=== PATIENT | female | born 1955 | race Caucasian/White ===

== ENCOUNTER 2019-07-02 12:55 | Day surgery (SDC) | payer BC ==
[~2019-07-02] VITALS: Ht 160 cm; Wt 160.0 kg
[~2019-07-02 12:55] MED LIST: ASPI-496 PO; ATOR40TA78 PO; CARV-39 PO; LIDOCAINE 1%, 20ML ONE; LIDOCAINE 1%-EPI 1:100K, 20ML ONE; MULT-658 PO; OMEP20TA62 PO; SODIUM BICARBONATE 4.2%, 5ML ONE; URIN1STR71 PO; [UNRECOGNIZED DRUG - OTHER] PO
[2019-07-02] MEDS ORDERED: EPINEPHRINE 1 MG/ML, 1ML ONE (13:46)
[2019-07-02] MEDS ORDERED: BUPIVACAINE/PF 0.5% ONE (13:46)
[2019-07-02] MEDS ORDERED: LACTATED RINGERS 1,000 ML IV SCH (14:15)
[2019-07-02 14:20] VITALS: BP 147/96
[2019-07-02 15:13] LABS: BASOPHILS # (AUTO) 0.03 x10^3/uL (0-0.1); BASOPHILS % (AUTO) 0 % (0-1); EOSINOPHILS # (AUTO) 0.25 x10^3/uL (0-0.4); EOSINOPHILS % (AUTO) 3 % (1-7); LYMPHOCYTES # (AUTO) 2.78 x10^3/uL (1-3.4); LYMPHOCYTES % (AUTO) 34 % (22-44); MD NO; MEAN CORPUSCULAR HEMOGLOBIN 30.4 pg (27.0-34.8); MEAN CORPUSCULAR HGB CONC 33.2 g/dL (32.4-35.8); MEAN CORPUSCULAR VOLUME 91.5 fL (80-100); MEAN PLATELET VOLUME 7.5 fL (7.4-10.4); MONOCYTES # (AUTO) 0.68 x10^3/uL (0.2-0.8); MONOCYTES % (AUTO) 8 % (2-9); NEUTROPHILS # (AUTO) 4.35 x10^3/uL (1.8-6.8); NEUTROPHILS % (AUTO) 54 % (42-75); PLATELET COUNT 219 x10^3/uL (130-400); RED CELL DISTRIBUTION WIDTH 13.1 % (9.6-15.2)
[2019-07-02] MEDS ORDERED: FENTANYL PF 100 MCG/2ML ONE ×2 (15:19→16:29)
[2019-07-02] MEDS ORDERED: PROPOFOL 50 ML ONE (15:19)
[2019-07-02] MEDS ORDERED: MIDAZOLAM 1 MG/ML, 2ML ONE (15:20)
[2019-07-02] MEDS ORDERED: DEXAMETHASONE 4 MG/ML, 1ML ONE (15:23)
[2019-07-02] MEDS ORDERED: CEFAZOLIN 1,000 MG ONE (15:23)
[2019-07-02] MEDS ORDERED: ONDANSETRON 2MG/ML, 2ML ONE (15:23)
[2019-07-02] MEDS ORDERED: METOPROLOL 1 MG/ML, 5ML IV PRN (16:00)
[2019-07-02] MEDS ORDERED: EPHEDRINE 50 MG/ML, 1ML IVPush PRN (16:00)
[2019-07-02] MEDS ORDERED: hydrALAzine 20 MG/ML, 1ML IV PRN (16:00)
[2019-07-02] MEDS ORDERED: MIDAZOLAM 1 MG/ML, 2ML IV PRN (16:00)
[2019-07-02] MEDS ORDERED: DIPHENHYDRAMINE 50 MG/ML, 1ML IVPush PRN (16:00)
[2019-07-02] MEDS ORDERED: MORPHINE SULFATE 4 MG/ML, 1ML IVPush PRN (16:00)
[2019-07-02] MEDS ORDERED: ONDANSETRON ODT 8 MG PO PRN (16:00)
[2019-07-02] MEDS ORDERED: PROMETHAZINE 25 MG/ML, 1ML IV PRN (16:00)
[2019-07-02] MEDS ORDERED: EPHEDRINE 50 MG/ML, 1ML IM PRN (16:00)
[2019-07-02] MEDS ORDERED: ONDANSETRON 2MG/ML, 2ML IV PRN (16:00)
[2019-07-02] MEDS ORDERED: MEPERIDINE/PF 25MG/ML,1ML IVPush PRN (16:00)
[2019-07-02] MEDS ORDERED: ACETAMINOPHEN 325 MG TABLET PO PRN (16:00)
[2019-07-02] MEDS ORDERED: ACETAMINOPHEN 650 MG/20.3 ML UDC ONE (16:28)
[2019-07-02] MEDS ORDERED: OXYcodone 5 MG/5 ML ORAL.SOL UDC ONE (16:28)
[2019-07-02] MEDS: OXYcodone 5 MG/5 ML ORAL.SOL UDC PO PRN ×2 (16:30→18:06)
[2019-07-02] MEDS: FENTANYL PF 100 MCG/2ML IV PRN ×2 (16:40→16:50)
== END 2019-07-02 18:30 | disposition home or self-care (01) ==
LOC: CFH 12:55 → OR 18:30
PROVIDERS: ATTEND Surgery
DX: N63.21 Unspecified lump in the left breast, upper outer quadrant (principal); D05.12 Intraductal carcinoma in situ of left breast; I10 Essential (primary) hypertension; E66.9 Obesity, unspecified; Z68.33 Body mass index [BMI] 33.0-33.9, adult; Z90.49 Acquired absence of other specified parts of digestive tract; Z90.710 Acquired absence of both cervix and uterus; Z79.899 Other long term (current) drug therapy; Z82.49 Family history of ischemic heart disease and other diseases of the circulatory system; Z80.0 Family history of malignant neoplasm of digestive organs
CPT/HCPCS: 19125; 19281; 36415; 76098; 85025; 88307; 88341; 88342; 88360; 93005; C1729; J0171; J0690; J1100; J2250; J2405; J2704; J3010; J3490; J7120